=== PATIENT | female | born 1985 | race African-American/Black ===

== ENCOUNTER 2021-03-22 10:13 | Emergency (ER) | payer OTHER ==
[~2021-03-22] VITALS: Ht 152.4 cm; Wt 61.7 kg
[2021-03-22 11:08] VITALS: BP 118/84
== END 2021-03-22 11:09 | disposition home or self-care (01) ==
LOC: ER 10:13
DX: J02.9 Acute pharyngitis, unspecified (principal); F17.210 Nicotine dependence, cigarettes, uncomplicated